=== PATIENT | male | born 1980 | race Caucasian/White ===

== ENCOUNTER 2021-01-04 09:57 | Outpatient (REF) | payer OTHER, SELFPAY ==
[2021-01-04 11:52] LABS: Alanine Aminotransferase 22 U/L (0-40); Anion Gap 11 (12-20); Aspartate Amino Transferase 15 U/L (5-37); Blood Urea Nitrogen 9 mg/dL (9-16); C Reactive Protein 0.07 mg/dL (< or = 0.50); Calcium 9.8 mg/dL (8.4-10.2); Carbon Dioxide 29 mmol/L (22-29); Chloride 107 mmol/L (96-108); Cholesterol 166 mg/dL; Estimated Glomerular Filt Rate > 60; Glucose Fasting 93 mg/dL (60-99); HDL Cholesterol 58 mg/dL; LDL Cholesterol Calculated 93 mg/dl; Potassium 4.3 mmol/L (3.3-5.1); Sodium 143 mmol/L (135-145); Triglycerides 75 mg/dL
[2021-01-04 13:37] LABS: Erythrocyte Sedimentation Rate 2 MM/HR (0-15)
== END 2021-01-04 09:58 | disposition home or self-care (01) ==
LOC: HO.HMGCLDS 09:57
PROVIDERS: PCP Internal Medicine; Visit Provider Internal Medicine
DX: Z00.01 Encounter for general adult medical examination with abnormal findings (principal); I10 Essential (primary) hypertension; M25.562 Pain in left knee
CPT/HCPCS: 36415; 80048; 80061; 84450; 84460; 85652; 86140

== ENCOUNTER 2021-02-09 12:15 | Outpatient (REF) | payer OTHER, SELFPAY ==
[2021-02-09 13:58] LABS: MANUAL DIFF FLAG NO
[2021-02-09 14:02] LABS: Basophils Percent Auto 0.3 % (0-2); Eosinophils Absolute Auto 0.2 X10*3/uL (0.0-0.4); Eosinophils Percent Auto 2.8 % (0-4); Hemoglobin 14.1 g/dl (14.0-18.0); Imm Gran Abs Auto 0.02 X10*3/uL (0.00-0.03); Imm Gran Pct Auto 0.3 % (0.0-0.4); Lymphocytes Absolute Auto 1.4 X10*3/uL (1.2-4.9); Lymphocytes Percent Auto 23.1 % (20-40); Mean Corpuscular HGB Conc 34.4 g/dl (31.0-36.0); Mean Corpuscular Hemoglobin 31.7 pg (27.0-33.0); Mean Corpuscular Volume 92.1 fL (80-98); Mean Platelet Volume 10.8 fL (9.4-12.4); Monocytes Absolute Auto 0.4 X10*3/uL (0.1-1.2); Monocytes Percent Auto 6.9 % (2-11); Neutrophils Absolute Auto 4.1 X10*3/uL (2.0-8.3); Neutrophils Percent Auto 66.6 % (45-73); Platelet Count 218 X10*3/uL (160-400); Red Blood Count 4.45 X10*6/uL (4.60-5.80); Red Cell Distribution Width 11.9 % (11.0-16.0); White Blood Count 6.1 X10*3/uL (4.8-10.8)
[2021-02-09 16:43] LABS: Anion Gap 14 (12-20); Blood Urea Nitrogen 9 mg/dL (9-16); Calcium 9.6 mg/dL (8.4-10.2); Carbon Dioxide 25 mmol/L (22-29); Chloride 108 mmol/L (96-108); Estimated Glomerular Filt Rate > 60; Glucose Random 86 mg/dL (60-115); Potassium 4.3 mmol/L (3.3-5.1); Sodium 143 mmol/L (135-145)
== END 2021-02-09 12:16 | disposition home or self-care (01) ==
LOC: HO.HMGCLDS 12:15
PROVIDERS: PCP Internal Medicine; Visit Provider Nurse Practitioner Family
DX: R42 Dizziness and giddiness (principal)
CPT/HCPCS: 36415; 80048; 85025

== ENCOUNTER 2021-12-08 07:22 | Outpatient (REF) | payer OTHER, SELFPAY ==
--- NOTE | ~2021-12-08 | MR_ITS ---
MR CERVICAL SPINE WITHOUT CONTRAST CLINICAL INFORMATION: Spondylosis with radiculopathy. COMPARISON: None available. TECHNIQUE: MRI of the cervical spine was obtained using routine sequences without contrast. FINDINGS: Cervical alignment is maintained. The vertebral body heights are preserved. The disc volumes are normal. There is no bone marrow edema. There are no acute fractures. Craniocervical junction is unremarkable. Bony hypertrophy of the anterior arch of C1 which exhibits preserved marrow signal, likely a variant of a cervical spine CT would be helpful in ensuring that there is no suspicious abnormality in this location. Craniocervical junction is unremarkable. Partially imaged posterior fossa is unremarkable. Cervical arterial flow voids are maintained. There are no significant extraspinal soft tissue findings. There are no cord signal changes. C2-C3: Uncovertebral joint spurring results in mild right-sided foraminal encroachment. No central canal and no left foraminal stenosis. C3-C4: Uncovertebral joint spurring and facet arthropathy result in severe left-sided foraminal stenosis. No central canal and no right foraminal stenosis. C4-C5: Uncovertebral joint spurring and facet arthropathy result in mild to moderate right-sided foraminal stenosis. No central canal and no left foraminal stenosis. C5-C6: Shallow central disc protrusion mildly narrows the central canal. Uncovertebral joint spurring and facet arthropathy result in mild to moderate bilateral foraminal encroachment. C6-C7: Uncovertebral joint spurring and facet arthropathy result in moderate to severe left foraminal stenosis. No central canal and no right foraminal stenosis. C7-T1: Uncovertebral joint spurring and facet arthropathy result in mild to moderate right-sided foraminal stenosis. No central canal and no left foraminal stenosis. MR/MR cervical spine wo con IMPRESSION: - Multilevel cervical spondylosis. Spondylitic changes result in severe left C3-C4, mild to moderate right C4-C5, mild to moderate bilateral C5-C6, moderate to severe left C6-C7, and mild to moderate right C7-T1 foraminal stenosis. There is no severe central canal stenosis within the cervical spine. - Bony hypertrophy of the anterior arch of C1 which exhibits preserved marrow signal, likely a variant of a cervical spine CT would be helpful in ensuring that there is no suspicious abnormality in this location.
== END 2021-12-08 07:23 | disposition home or self-care (01) ==
LOC: HO.MRI 07:22
PROVIDERS: Visit Provider Internal Medicine
DX: M47.22 Other spondylosis with radiculopathy, cervical region (principal)
CPT/HCPCS: 72141

== ENCOUNTER → 2021-12-09 09:56 | Outpatient (BNVA) | payer OTHER, SELFPAY | PROVIDERS: PCP Internal Medicine; Visit Provider Nurse Practitioner Family | DX: G47.52 REM sleep behavior disorder (principal); R40.0 Somnolence; R06.83 Snoring; F51.3 Sleepwalking [somnambulism] | CPT/HCPCS: 99202 ==

== ENCOUNTER 2022-01-19 09:50 | Outpatient (REF) | payer OTHER, SELFPAY ==
[2022-01-19 11:26] LABS: MANUAL DIFF FLAG NO
[2022-01-19 11:31] LABS: Basophils Percent Auto 0.2 % (0-2); Eosinophils Absolute Auto 0.1 X10*3/uL (0.0-0.4); Eosinophils Percent Auto 2.2 % (0-4); Hematocrit 42.8 % (42.0-52.0); Hemoglobin 15.1 g/dl (14.0-18.0); Imm Gran Abs Auto 0.02 X10*3/uL (0.00-0.03); Imm Gran Pct Auto 0.4 % (0.0-0.4); Lymphocytes Absolute Auto 1.4 X10*3/uL (1.2-4.9); Lymphocytes Percent Auto 28.1 % (20-40); Mean Corpuscular HGB Conc 35.3 g/dl (31.0-36.0); Mean Corpuscular Hemoglobin 33.3 pg (27.0-33.0); Mean Corpuscular Volume 94.3 fL (80.0-98.0); Mean Platelet Volume 10.9 fL (9.4-12.4); Monocytes Absolute Auto 0.5 X10*3/uL (0.1-1.2); Monocytes Percent Auto 9.6 % (2-11); Neutrophils Percent Auto 59.5 % (45-73); Platelet Count 215 X10*3/uL (160-400); Red Blood Count 4.54 X10*6/uL (4.60-5.80); Red Cell Distribution Width 11.8 % (11.0-16.0)
[2022-01-19 12:16] LABS: Alanine Aminotransferase 16 U/L (0-40); Anion Gap 11 (12-20); Aspartate Amino Transferase 12 U/L (5-37); Blood Urea Nitrogen 14 mg/dL (9-16); Calcium 9.6 mg/dL (8.4-10.2); Carbon Dioxide 28 mmol/L (22-29); Chloride 106 mmol/L (96-108); Cholesterol 182 mg/dL; Estimated Glomerular Filt Rate > 60; Glucose Fasting 86 mg/dL (60-99); HDL Cholesterol 68 mg/dL; LDL Cholesterol Calculated 108 mg/dl; Sodium 140 mmol/L (135-145); Triglycerides 33 mg/dL
[2022-01-19 12:40] LABS: TSH reflex Free T4 2.13 uIU/mL (0.32-4.0); Vitamin D 25-OH Total 23.8 ng/mL (>30)
[2022-01-19 13:12] LABS: Folate 13.4 ng/mL (> or = 4.0); Vitamin B12 262 pg/mL (200-900)
== END 2022-01-19 09:51 | disposition home or self-care (01) ==
LOC: HO.HMGCLDS 09:50
PROVIDERS: PCP Internal Medicine; Visit Provider Internal Medicine
DX: Z00.01 Encounter for general adult medical examination with abnormal findings (principal); F32.A Depression, unspecified; F41.9 Anxiety disorder, unspecified; Z83.49 Family history of other endocrine, nutritional and metabolic diseases
CPT/HCPCS: 36415; 80048; 80061; 82306; 82607; 82746; 84443; 84450; 84460; 85025

== ENCOUNTER 2022-01-31 06:15 | Outpatient (REF) | payer OTHER, SELFPAY ==
[2022-02-04 17:06] LABS: Testosterone, Free 76.5 pg/mL (35.0-155.0); Testosterone, Total 757 ng/dL (250-1100)
== END 2022-01-31 06:16 | disposition home or self-care (01) ==
LOC: HO.HMGCLDS 06:15
PROVIDERS: Visit Provider Internal Medicine
DX: R68.82 Decreased libido (principal); R53.83 Other fatigue
CPT/HCPCS: 36415; 84402; 84403